=== PATIENT | female | born 1940 | race Caucasian/White ===

== ENCOUNTER 2023-09-17 01:02 | Emergency (ER) | payer MEDICARE ==
[2023-09-17 01:07] VITALS: PULSE 70; RESP 18; TEMP 97.4
--- NOTE | 2023-09-17 01:31 | ED ---
General Adult HPI - General Chief complaint: Extremity Injury, Upper Stated complaint: Right wrist injury Time Seen by Provider: 09/17/23 01:20 Source: patient, RN notes reviewed Mode of arrival: ambulatory Limitations: no limitations - History of Present Illness Initial comments: 83-year-old female presenting to the ED with a chief complaint of right wrist injury. Patient reports that she missed a step causing her to fall forward. States that she caught herself with her hands however now notes pain of her right wrist. Denies other injury at this time. No preceding chest pain, shortness of breath, dizziness prior to the fall. No other complaints at this time. - Related Data Allergies Allergy/AdvReac Type Severity Reaction Status Date / Time No Known Allergies Allergy Verified 09/17/23 01:07 Review of Systems ROS Statement: Those systems with pertinent positive or pertinent negative responses have been documented in the HPI. ROS Other: All systems not noted in ROS Statement are negative. Past Medical History Past Medical History: Atrial Fibrillation History of Any Multi-Drug Resistant Organisms: None Reported Past Surgical History: No Surgical Hx Reported Past Psychological History: No Psychological Hx Reported Smoking Status: Never smoker Past Alcohol Use History: Occasional Past Drug Use History: None Reported General Exam - General Exam Comments Initial Comments: Visual Physical Exam Vital signs reviewed General: Well-appearing, nontoxic, no acute distress. Head: Normocephalic, atraumatic Eyes: PERRLA, EOMI ENT: Airway patent Chest: Nonlabored breathing Skin: No visual rash, normal skin tone Neuro: Alert and oriented 3 Musculoskeletal: Swelling of the distal portion of the right forearm/wrist. Limitations: no limitations General appearance: alert, in no apparent distress Head exam: Present: atraumatic, normocephalic, other (No Ronquillo sign or raccoon's eyes) Neck exam: Present: normal inspection Respiratory exam: Present: normal lung sounds bilaterally Cardiovascular Exam: Present: regular rate GI/Abdominal exam: Present: soft, normal bowel sounds. Absent: distended, tenderness, guarding, rebound, rigid Extremities exam: Present: other (There is soft tissue swelling to the medial aspect of the distal forearm. No obvious deformity. No crepitus or step-off. Radial pulses intact. No snuffbox tenderness to palpation.) Back exam: Present: other (No midline spinal for this palpation.) Neurological exam: Present: alert, oriented X3 Skin exam: Present: warm, dry Course Vital Signs 09/17/23 01:05 Temperature 97.4 F L Pulse Rate 70 Respiratory 18 Rate O2 Sat by Pulse 96 Oximetry Procedures - Orthopedic Splinting/Casting Injury #1 Side: right Upper Extremity Immobilizer: volar splint Additional Comments: Neurovascularly intact after splint placement. Medical Decision Making - Medical Decision Making was pt. sent in by a medical professional or institution (, PA, VEGETABLE LOADER, urgent care, hospital, or snf...) When possible be specific @ -No Did you speak to anyone other than the patient for history (EMS, parent, family, police, friend...)? What history was obtained from this source @ -No Did you review nursing and triage notes (agree or disagree)? Why? @ -I reviewed and agree with nursing and triage notes Were old charts reviewed (outside hosp., previous admission, EMS record, old EKG, old radiological studies, urgent care reports/EKG's, snf records)? Report findings @ -No old charts were reviewed Differential Diagnosis (chest pain, altered mental status, abdominal pain women, abdominal pain men, vaginal bleeding, weakness, fever, dyspnea, syncope, headache, dizziness, GI bleed, back pain, seizure, CVA, palpatations, mental health, musculoskeletal)? @ -Differential Musculoskeletal Muscular strain, contusion, ligament sprain, fracture, arthritis, septic arthritis, bursitis, cellulitis, muscle spasm, nerve compression, DVT, arterial occlusion, herpes zoster, electrolyte abnormality, tumor.... This is not meant to be in all inclusive list EKG interpreted by me (3pts min.). @ -None X-rays interpreted by me (1pt min.). @ -No official radiology interpretation however upon my interpretation no evidence of acute fracture. CT interpreted by me (1pt min.). @ -None done U/S interpreted by me (1pt. min.). @ -None done What testing was considered but not performed or refused? (CT, X-rays, U/S, labs)? Why? @ -None What meds were considered but not given or refused? Why? @ -None Did you discuss the management of the patient with other professionals (professionals i.e. , JERSON, VEGETABLE LOADER, lab, RT, psych nurse, social psychologist, security solutions engineer, teacher, chief sales officer, heel caser)? Give summary @ -No Was smoking cessation discussed for >3mins.? @ -No Was critical care preformed (if so, how long)? @ -No Were there social determinants of health that impacted care today? How? (Homelessness, low income, unemployed, alcoholism, drug addiction, transportation, low edu. Level, literacy, decrease access to med. care, skilled nursing, rehab)? @ -No Was there de-escalation of care discussed even if they declined (Discuss DNR or withdrawal of care, Hospice)? DNR status @ -No What co-morbidities impacted this encounter? (DM, HTN, Smoking, COPD, CAD, Cancer, CVA, ARF, Chemo, Hep., AIDS, mental health diagnosis, sleep apnea, morbid obesity)? @ -None Was patient admitted / discharged? Hospital course, mention meds given and r oute, prescriptions, significant lab abnormalities, going to OR and other pertinent info. @ -Discharge 83-year-old female presenting to the ED with right wrist injury after FOOSH. No head injury at this time. Missed a step and caught herself with her hands. Imaging reviewed which did reveal some soft tissue swelling however no obvious deformity, pending official radiology interpretation. At this time patient and family would like to go home. Patient placed in a volar splint and discharged home. Patient and family report they will follow-up with the orthopedist in [place]. Provided disc. Discharged home in stable condition. Discussed return precautions with patient and family who verbalized agreement. Undiagnosed new problem with uncertain prognosis? @ -No Drug Therapy requiring intensive monitoring for toxicity (Heparin, Nitro, Insulin, Cardizem)? @ -No Were any procedures done? @ -Yes, splint placement Diagnosis/symptom? @ -Status post fall, wrist pain Acute, or Chronic, or Acute on Chronic? @ -Acute Uncomplicated (without systemic symptoms) or Complicated (systemic symptoms)? @ -Uncomplicated Side effects of treatment? @ -No Exacerbation, Progression, or Severe Exacerbation? @ -No Poses a threat to life or bodily function? How? (Chest pain, [place], [place], pneumonia, PE, COPD, DKA, ARF, appy, cholecystitis, CVA, Diverticulitis, Homicidal, Suicidal, threat to staff... and all critical care pts) @ -No Disposition Clinical Impression: Fall, Wrist pain Disposition: HOME SELF-CARE Condition: Good Instructions (If sedation given, give patient instructions): Wrist Injury (ED) Additional Instructions: Please return to the Emergency Department if symptoms worsen or any other concerns. Please follow-up with your PCP/orthopedist. Is patient prescribed a controlled substance at d/c from ED?: No Referrals: None,Stated [Primary Care Provider] - 1-2 days Time of Disposition: 03:52
--- NOTE | 2023-09-17 03:49 | XR ---
EXAM: XR Right Wrist Complete, 3 or More Views CLINICAL HISTORY: ITS.REASON XR Reason: Pain TECHNIQUE: Frontal, lateral and oblique views of the right wrist. COMPARISON: None. FINDINGS: Bones/joints: Diffuse osseous demineralization. Prior ORIF laterally of the distal right radius old fracture. Involving the medial corner of the distal radius a nondisplaced intra-articular fracture is seen. There is a mildly displaced fracture of the ulnar styloid. Positive ulnar variance. Moderate osteoarthritis of the radiocarpal, medial intercarpal, first carpometacarpal articulations and first MCP, interphalangeal articulations. Second through fifth MCP joints mild osteoarthrosis. Periarticular soft tissue edema/swelling.. IMPRESSION: Osteopenia. A nondisplaced intra-articular fracture of the medial corner of the distal right radius. Ulnar styloid fracture. Mild/moderate soft tissue swelling of the right wrist An old fracture laterally of the distal right radius, post ORIF. .
[2023-09-17] MEDS: IBUPROFEN 600 MG STARTER PACK 4 TAB BTL PO STA (04:07)
[2023-09-17] MEDS: ACET/COD 300 MG/30 MG STARTER PACK 6 TAB BTL PO STA (04:07)
== END 2023-09-17 04:09 | disposition home or self-care (01) ==
LOC: EC 01:02
DX: S52.571A Other intraarticular fracture of lower end of right radius, initial encounter for closed fracture (principal); S52.611A Displaced fracture of right ulna styloid process, initial encounter for closed fracture; W10.9XXA Fall (on) (from) unspecified stairs and steps, initial encounter
CPT/HCPCS: 29125; 99283